=== PATIENT | female | born 2000 | race Native Hawaiian/Other Pacific Islander ===

== ENCOUNTER 2021-03-28 12:09 | Outpatient (CLI) | payer OTHER ==
[2021-03-28 12:50] LABS: ALBUMIN 4.3 g/dL (3.2-5.5); ALBUMIN/GLOBULIN RATIO 1.2 (1.0-2.2); ALKALINE PHOSPHATASE 56 IU/L (42-121); ALT ALANINE AMINOTRANSFERASE 19 IU/L (10-60); AST ASPARTATE AMINOTRANSFERASE 19 IU/L (10-42); BILIRUBIN,TOTAL 0.6 mg/dL (0.2-1.0); BUN - BLOOD UREA NITROGEN 13 mg/dL (6-20); CALCIUM 9.1 mg/dL (8.5-10.3); CARBON DIOXIDE - CO2 23 mmol/L (21-32); CHLORIDE 101 mmol/L (101-111); CHOL/HDL RATIO 3.5 (<4.4); CHOLESTEROL 207 mg/dL; CREATININE 0.6 mg/dL (0.4-1.0); GFR - MDRD 126 (>89); GLUCOSE 90 mg/dL (70-100); HDL CHOLESTEROL 59 mg/dL; LDL CHOLESTEROL,CALCULATED 133 mg/dL; LDL/HDL RATIO 2.3 (<4.4); SODIUM 134 mmol/L (135-145); TOTAL PROTEIN 7.9 g/dL (6.7-8.2); TRIGLYCERIDES 75 mg/dL; VLDL CHOLESTEROL 15 mg/dL
[2021-03-28 12:56] LABS: THYROID STIMULATING HORMONE 0.83 uIU/mL (0.34-5.60)
[2021-03-28 13:07] LABS: FOLATE 19.32 ng/mL (5.90 - >24.8)
== END 2021-03-28 12:10 | disposition home or self-care (01) ==
LOC: LAB 12:09
PROVIDERS: ATTEND Nurse Practitioner
DX: Z01.84 Encounter for antibody response examination (principal); R53.83 Other fatigue; Z13.6 Encounter for screening for cardiovascular disorders
CPT/HCPCS: 36415; 80053; 80061; 82607; 82746; 83721; 84443; 86317

== ENCOUNTER 2021-05-08 09:21 | Emergency (ER) | payer OTHER ==
--- OUTSIDE RECORDS SUMMARY | 2021-05-08 09:28 | EXTERNAL MEDICAL SUMMARY RPT | Continuity of Care Document ---
:2000 Author Organization [facility] Address [address] [place] [address] Phone Care Team Providers Name Role Phone Comfort Elmore Maura Unavailable Unavailable Allergies No information. Encounters No information. Medications No information. Problems Procedures date description facility [id number] [facility] Results No information. Vital Signs date measurement value source 20210331 weight_standard 199.98 lb 20210331 weight_metric 90.71 kg 20210331 respiration_rate 18 /min 20210401 temperature_standard 98.4 F 20210401 temperature_metric 36.89 C [id number] heart_rate 105 /min [id number] BP_systolic 122 mm[Hg] [id number] BP_diastolic 72 mm[Hg]
[2021-05-08 09:34] VITALS: BP 122/80
--- NOTE | 2021-05-08 09:34 | ED Physician Documentation ---
PD HPI HEADACHE - Stated complaint Stated Complaint: HEADACHE/NAUSEA - History obtained from History obtained from: Patient - History of Present Illness Timing - onset: Enter time (0500), Today Timing - onset during: Sleep Timing - duration: Hours Timing - details: Gradual onset, Still present Location: Back Quality: Throbbing Associated symptoms: Nausea. No: Fever, Stiff neck, Vomiting, Weakness, Numbness, Syncope, Seizure, Eye pain, Vision changes Improved by: Rest, Dark room Worsened by: Light, Noise, Moving Contributing factors: No: Anticoagulated Similar symptoms before: Diagnosis (headache) Recently seen: Not recently seen - Additional information Additional information: Previously well 20-year-old female gets a headache about once or twice per month and she reports this morning she had a headache and she has come to work. She states that her headache started about 5 AM and is about a 7 on a scale of 1-10. She has throbbing in the back of her head typical to what she has had previously. She usually is able to take Tylenol and sleep with resolution of her headache. She is scheduled to work today, has come to work and is expecting to work. She is looking for some form of treatment. She has not been diagnosed with migraine headache. She has not had to use Imitrex and she has not had to [place] a migraine rescue previously. Review of Systems Constitutional: denies: Fever Eyes: denies: Decreased vision Ears: denies: Ear pain Nose: denies: Congestion Throat: denies: Sore throat Cardiac: denies: Chest pain / pressure Respiratory: denies: Dyspnea, Cough GI: reports: Nausea. denies: Abdominal Pain, Vomiting : denies: Dysuria, Frequency Skin: denies: Rash Musculoskeletal: denies: Neck pain, Back pain, Extremity pain Neurologic: reports: Headache. denies: Generalized weakness, Focal weakness, Numbness, Confused, Altered mental status, Head injury, LOC PD PAST MEDICAL HISTORY - Present Medications Home Medications: Ambulatory Orders Medication Instructions Recorded Confirmed Dextroamphetamine/Amphetamine 10 mg PO DAILY 05/08/21 05/08/21 [Dextroamp-Amphetamine 5 mg Tab] Levonorgestrel/Ethin.estradiol 1 each PO DAILY 05/08/21 05/08/21 [Kurvelo-28 Tablet] - Allergies Allergies/Adverse Reactions: Allergies Allergy/AdvReac Type Severity Reaction Status Date / Time No Known Drug Allergies Allergy Verified 05/08/21 09:34 PD ED PE NORMAL - Vitals Vital signs reviewed: Yes - General General: Alert and oriented X 3, No acute distress, Well developed/nourished - HEENT HEENT: Atraumatic, PERRL, EOMI - Neck Neck: Supple, no meningeal sign, No bony TTP - Cardiac Cardiac: RRR, No murmur - Respiratory Respiratory: No respiratory distress, Clear bilaterally - Abdomen Abdomen: Soft, Non tender - Back Back: No CVA TTP, No spinal TTP - Derm Derm: Normal color, Warm and dry, No rash - Extremities Extremities: No deformity, No edema - Neuro Neuro: Alert and oriented X 3, hr assistant 2-12 intact, No motor deficit, No sensory deficit, Normal speech Eye Opening: Spontaneous Motor: Obeys Commands Verbal: Oriented GCS Score: 15 - Psych Psych: Normal mood, Normal affect Results - Vitals Vitals: Vital Signs - 24 hr 05/08/21 09:31 Temperature 36.4 C L Heart Rate 93 Respiratory 12 Rate Blood Pressure 122/80 O2 Saturation 98 Oxygen O2 Source Room air PD MEDICAL DECISION MAKING - ED course Complexity details: reviewed results, re-evaluated patient, considered differential, d/w patient ED course: Previously well 20-year-old female with a headache presents with some nausea without vomiting she is administered Toradol 60 mg IM and Zofran 4 mg TL. Departure - Departure Disposition: 01 Home, Self Care Clinical Impression: Cephalalgia Qualifiers: Headache type: tension-type Headache chronicity pattern: acute headache Intractability: not intractable Qualified Code(s): G44.209 - Tension-type headache, unspecified, not intractable Instructions: ED Headache Tension Follow-Up: Juanita Suarez ARNP [Primary Care Provider] -
[2021-05-08] MEDS: KETOROLAC 60 MG/2 ML VIAL IM STA (09:41)
[2021-05-08] MEDS: ONDANSETRON ODT 4 MG TABLET TL STA (09:41)
== END 2021-05-08 10:04 | disposition home or self-care (01) ==
LOC: ED 09:21
DX: G44.209 Tension-type headache, unspecified, not intractable (principal)
CPT/HCPCS: 96372; 99282; 99283; Q0162

== ENCOUNTER 2021-11-10 11:32 | Emergency (ER) | payer OTHER ==
[2021-11-10] MEDS ORDERED: PROCHLORPERAZINE 10 MG/2 ML VIAL IVP STA (12:15)
[2021-11-10] MEDS ORDERED: SODIUM CHLORIDE 0.9% 1,000 ML IV STA (12:15)
[2021-11-10] MEDS ORDERED: diphenhydrAMINE INJ 50 MG/ML VIAL IVP STA (12:16)
--- NOTE | 2021-11-10 12:18 | ED Physician Documentation ---
History of Present Illness - Stated complaint Stated Complaint: HEADACHE/NAUSEA - Chief complaint Chief Complaint: Neuro - Additonal information Additional information: 21-year-old female presents emergency department for evaluation of acute onset headache with associated nausea, photophobia and light sensitivity. She does have a history of migraines and this feels similar to others. She typically takes sumatriptan as an resting medicine but recently ran out. Her last headache was about 3 months ago. She has no falls or trauma. No fevers. No focal neurodeficits. Uncertain if she is she has irregular menstrual cycle and last cycle was 3 months ago. Review of Systems Constitutional: denies: Fever, Chills Eyes: reports: Photophobia Ears: reports: Other (Noise sensitivity) Nose: reports: Reviewed and negative Throat: reports: Reviewed and negative Cardiac: reports: Reviewed and negative Respiratory: reports: Reviewed and negative GI: reports: Nausea : reports: Reviewed and negative Skin: reports: Reviewed and negative Neurologic: reports: Headache. denies: Generalized weakness, Focal weakness, Numbness, Near syncope, Confused PD PAST MEDICAL HISTORY - Past Medical History Cardiovascular: None Respiratory: None Neuro: Headaches Endocrine/Autoimmune: None GI: None REHANGER: None : None HEENT: None Psych: ADD/ADHD Musculoskeletal: None Derm: None - Past Surgical History Past Surgical History: No - Present Medications Home Medications: Ambulatory Orders Medication Instructions Recorded Confirmed Dextroamphetamine/Amphetamine 10 mg PO DAILY 05/08/21 11/10/21 [Dextroamp-Amphetamine 5 mg Tab] Levonorgestrel/Ethin.estradiol 1 each PO DAILY 05/08/21 11/10/21 [Kurvelo-28 Tablet] SUMAtriptan [Imitrex] 25 mg PO BID PRN #10 tablet 11/10/21 - Allergies Allergies/Adverse Reactions: Allergies Allergy/AdvReac Type Severity Reaction Status Date / Time No Known Drug Allergies Allergy Verified 11/10/21 11:41 - Social History Does the pt smoke?: No Smoking Status: Never smoker Does the pt drink ETOH?: Yes PD ED PE NORMAL - General General: Alert and oriented X 3, No acute distress - HEENT HEENT: Ears normal, Moist mucous membranes - Neck Neck: Supple, no meningeal sign, No adenopathy - Cardiac Cardiac: RRR, No murmur - Respiratory Respiratory: No respiratory distress, Clear bilaterally - Abdomen Abdomen: Normal bowel sounds, Soft - Derm Derm: Normal color, Warm and dry, No rash - Extremities Extremities: No deformity - Neuro Neuro: Alert and oriented X 3, brokerage coordinator 2-12 intact, No motor deficit, No sensory deficit Eye Opening: Spontaneous Motor: Obeys Commands Verbal: Oriented GCS Score: 15 Results - Vitals Vitals: Vital Signs - 24 hr 11/10/21 11:37 Temperature 36.8 C Heart Rate 92 Respiratory 16 Rate Blood Pressure 135/73 H O2 Saturation 96 Oxygen O2 Source Room air - Labs Labs: Laboratory Tests 11/10/21 12:30 Urine Color YELLOW Urine Clarity SL. CLOUDY Urine pH 7.0 Ur Specific [place] 1.015 Urine Protein NEGATIVE Urine Glucose (UA) NEGATIVE Urine Ketones TRACE Urine Occult Blood NEGATIVE Urine Nitrite NEGATIVE Urine Bilirubin NEGATIVE Urine Urobilinogen 0.2 (NORMAL) Ur Leukocyte Esterase MODERATE H Urine RBC 6-10 H Urine WBC 6-10 H Ur Squamous Epith Cells MANY Squamous H Urine Bacteria Few Ur Microscopic Review INDICATED Urine Culture Comments NOT INDICATED Urine HCG, Qual NEGATIVE PD MEDICAL DECISION MAKING - ED course Complexity details: reviewed results, re-evaluated patient, considered differential, d/w patient ED course: 21-year-old female has a history of migraine headache presents emergency department with acute episode of her typical migraine that began this morning. She is out of her sumatriptan which she typically uses to address the headache. On exam no fevers, no red flags. No focal neurodeficits. Will defer imaging. Patient was given Compazine and Benadryl here in the ER with good relief of symptoms. She was unsure of possibility of and a urine was subsequently negative. A refill for her sumatriptan has been sent to the pharmacy. She is advised close follow-up with her primary care provider. Departure - Departure Disposition: 01 Home, Self Care Clinical Impression: Migraine headache Qualifiers: Migraine type: unspecified Status migrainosus presence: without status migrainosus Intractability: not intractable Qualified Code(s): G43.909 - Migraine, unspecified, not intractable, without status migrainosus Condition: Stable Record reviewed to determine appropriate education?: Yes Prescriptions: SUMAtriptan [Imitrex] 25 mg PO BID PRN #10 tablet PRN Reason: Headache Comments: Vee hope that you are feeling better soon. Your headache seems to be improving with medications given here in the emergency department. I have sent a prescription for some sumatriptan to the [facility] in [place]. Continue to follow closely with your primary care doctor for longer-term management of your headaches. 9 your urine today shows that you are not . I also advise close follow- up with your primary care doctor to discuss irregular menstrual cycles and if any treatment for this would be advised or necessary.
[2021-11-10 12:34] LABS: BILIRUBIN,URINE NEGATIVE (NEGATIVE); GLUCOSE, URINE (UA) NEGATIVE (NEGATIVE); KETONES,URINE (UA) TRACE mg/dL (NEGATIVE); LEUKOCYTE ESTERASE, URINE MODERATE (NEGATIVE); NITRITE,URINE NEGATIVE (NEGATIVE); OCCULT BLOOD,URINE NEGATIVE (NEGATIVE); PROTEIN,URINE NEGATIVE (NEGATIVE); UROBILINOGEN,URINE 0.2 (NORMAL) E.U./dL (NORMAL)
[2021-11-10 12:38] LABS: CLARITY,URINE SL. CLOUDY (CLEAR); HCG UR QUAL NEGATIVE
[2021-11-10 12:42] LABS: BACTERIA,URINE Few /HPF (None Seen); SQUAMOUS EPITHELIAL CELL,UR MANY Squamous (<= Few)
[2021-11-10 13:40] VITALS: BP 121/73
== END 2021-11-10 13:34 | disposition home or self-care (01) ==
LOC: ED 11:32
DX: G43.909 Migraine, unspecified, not intractable, without status migrainosus (principal)
CPT/HCPCS: 81001; 81025; 96374; 96375; 99283; J1200; 81003; 87086

== ENCOUNTER 2022-01-20 14:42 | Outpatient (CLI) | payer OTHER ==
[2022-01-20 15:13] LABS: BASOPHILS % (AUTO) 0.5 %; EOSINOPHILS # (AUTO) 0.3 10^3/uL (0.0-0.7); EOSINOPHILS % (AUTO) 3.7 %; HCT - HEMATOCRIT 45.1 % (37.0-47.0); HGB - HEMOGLOBIN 14.9 g/dL (12.0-16.0); LYMPHOCYTES # (AUTO) 2.6 10^3/uL (1.5-3.5); MEAN CORPUSCULAR HEMOGLOBIN 27.6 pg (27.0-31.0); MEAN CORPUSCULAR VOLUME 83.7 fL (81.0-99.0); MEAN PLATELET VOLUME 10.5 fL (7.9-10.8); MONOCYTES # (AUTO) 0.6 10^3/uL (0.0-1.0); MONOCYTES % (AUTO) 8.2 %; NEUTROPHILS # (AUTO) 3.8 10^3/uL (1.5-6.6); NEUTROPHILS % (AUTO) 51.3 %; PLT - PLATELET COUNT 344 10^3/uL (130-450); RED BLOOD COUNT 5.39 10^6/uL (4.20-5.40); RED CELL DISTRIBUTION WIDTH 12.5 % (12.0-15.0); WHITE BLOOD COUNT 7.3 x10^3/uL (4.8-10.8)
[2022-01-20 15:17] LABS: GTT GLUCOSE,FASTING 98 mg/dL (70-100)
[2022-01-20 15:27] LABS: ALBUMIN 4.2 g/dL (3.2-5.5); ALBUMIN/GLOBULIN RATIO 1.3 (1.0-2.2); ALKALINE PHOSPHATASE 62 IU/L (42-121); ALT ALANINE AMINOTRANSFERASE 15 IU/L (10-60); AST ASPARTATE AMINOTRANSFERASE 16 IU/L (10-42); BILIRUBIN,TOTAL 0.7 mg/dL (0.2-1.0); BUN - BLOOD UREA NITROGEN 14 mg/dL (6-20); CALCIUM 9.2 mg/dL (8.5-10.3); CARBON DIOXIDE - CO2 24 mmol/L (21-32); CHLORIDE 103 mmol/L (101-111); CHOL/HDL RATIO 4.1 (<4.4); CHOLESTEROL 179 mg/dL; CREATININE 0.6 mg/dL (0.4-1.0); GFR - MDRD 125 (>89); GLUCOSE 99 mg/dL (70-100); HDL CHOLESTEROL 44 mg/dL; LDL CHOLESTEROL,CALCULATED 119 mg/dL; LDL/HDL RATIO 2.7 (<4.4); POTASSIUM 3.8 mmol/L (3.5-5.0); SODIUM 137 mmol/L (135-145); TOTAL PROTEIN 7.4 g/dL (6.7-8.2); TRIGLYCERIDES 79 mg/dL; VLDL CHOLESTEROL 16 mg/dL
[2022-01-20 15:55] LABS: THYROID STIMULATING HORMONE 0.8 uIU/mL (0.34-5.60)
[2022-01-20 15:56] LABS: FREE T4 (FREE THYROXINE) 0.87 ng/dL (0.58-1.64)
[2022-01-20 16:03] LABS: FERRITIN 70.1 ng/mL (11.0-306.8)
[2022-01-20 16:04] LABS: PROLACTIN 12.81 ng/mL
[2022-01-20 16:06] LABS: FOLATE 12.05 ng/mL (5.90 - >24.8)
[2022-01-20 16:22] LABS: FOLLICLE STIMULATING HORMONE 6.51 mIU/mL
[2022-01-20 16:24] LABS: LUTEINIZING HORMONE 15.8 mIU/mL
[2022-01-20 20:57] LABS: ESTIMATED AVERAGE GLUCOSE 114 mg/dL (70-100); HEMOGLOBIN A1c% 5.6 % (4.27-6.07)
[2022-01-21 04:08] LABS: HEPATITIS B SURFACE AB QUANT >1000.0 mIU/mL (Immunity>9.9); RPR Non Reactive (Non Reactive); VITAMIN D 25-HYDROXY 20.7 ng/mL (30.0-100.0)
[2022-01-21 06:09] LABS: HCV AB 0.1 s/co ratio (0.0-0.9)
[2022-01-21 08:09] LABS: HIV SCREEN 4TH GENERATION Non Reactive (Non Reactive); HSV 1 IGG TYPE SPEC <0.91 index (0.00-0.90); HSV 2 IGG TYPE SPEC <0.91 index (0.00-0.90); INSULIN 9.7 uIU/mL (2.6-24.9)
[2022-01-21 22:06] LABS: FREE TESTOSTERONE(DIRECT) 8.1 pg/mL (0.0-4.2); TESTOSTERONE 80 ng/dL (13-71)
== END 2022-01-20 14:43 | disposition home or self-care (01) ==
LOC: LAB 14:42
PROVIDERS: ATTEND Obstetrics & Gynecology
DX: N92.6 Irregular menstruation, unspecified (principal)
CPT/HCPCS: 36415; 80053; 80061; 82306; 82397; 82607; 82627; 82728; 82746; 82951; 83001; 83002; 83036; 83525; 83721; 84146; 84402; 84403; 84439; 84443; 85025; 86317; 86592; 86695; 86696; 86803; 86900; 86901; 87389

== ENCOUNTER 2022-11-25 15:02 | Outpatient (CLI) | payer BC | END 2022-11-25 15:03 | disposition home or self-care (01) | LOC: LAB 15:02 | PROVIDERS: ATTEND Obstetrics & Gynecology | DX: R11.0 Nausea (principal) | CPT/HCPCS: 36415; 84702 ==

== ENCOUNTER 2022-11-27 18:19 | Outpatient (CLI) | payer BC | END 2022-11-27 18:20 | disposition home or self-care (01) | LOC: LAB 18:19 | PROVIDERS: ATTEND Obstetrics & Gynecology | DX: R11.0 Nausea (principal) | CPT/HCPCS: 36415; 84702 ==